=== PATIENT | male | born 1950 | race Caucasian/White ===

== ENCOUNTER 2019-08-19 10:41 | Emergency (ER) | payer MEDICARE, OTHER ==
[~2019-08-19] VITALS: Ht 177.8 cm; Wt 81.7 kg
[~2019-08-19 10:41] MED LIST: CEPH500 PO
[2019-08-19 11:28] LABS: BASOPHILS ABSOLUTE AUTO 0.08 K/mm3 (0.00-0.23); BASOPHILS PERCENT AUTO 1 % (0-2); EOSINOPHILS ABSOLUTE AUTO 0.16 K/mm3 (0.00-0.68); EOSINOPHILS PERCENT AUTO 2 % (0-6); Hemoglobin 16.5 g/dL (13.5-17.5); IMMATURE GRAN ABSOLUTE AUTO 0.07 K/mm3 (0.00-0.10); IMMATURE GRAN PERCENT AUTO 1 % (0-1); LYMPHOCYTES ABSOLUTE AUTO 2.17 K/mm3 (0.84-5.20); LYMPHOCYTES PERCENT AUTO 23 % (21-46); MONOCYTES ABSOLUTE AUTO 0.54 K/mm3 (0.16-1.47); MONOCYTES PERCENT AUTO 6 % (4-13); Mean Corpuscular HGB 32.8 pg (26.0-34.0); Mean Corpuscular HGB Conc 33.7 g/dL (31.5-36.5); Mean Corpuscular Volume 97 fL (80-100); Mean Platelet Volume 11.1 fL (9.1-12.4); NEUTROPHILS ABSOLUTE AUTO 6.42 K/mm3 (1.96-9.15); NEUTROPHILS PERCENT AUTO 68 % (41-73); Platelet Count 183 K/mm3 (150-400); RDW Coefficient Variation 12.8 % (11.7-14.2); RDW Standard Deviation 45.6 fL (35.1-46.3); Red Blood Cell Count 5.03 M/mm3 (4.30-5.90); White Blood Cell Count 9.44 K/mm3 (4.00-11.30)
[2019-08-19 13:52] LABS: Alanine Aminotransfer (ALT/SGP 28 U/L (12-78); Albumin/Globulin Ratio 1.1 (0.8-1.8); Anion Gap 7 mmol/L (6-16); Aspartate Aminotrans (AST/SGOT 15 U/L (12-37); Bilirubin, Total 0.4 mg/dL (0.1-1.0); Blood Urea Nitrogen 19 mg/dL (8-24); Bun/Creatinine Ratio 21.3 (12.0-20.0); CO2, Blood 23 mmol/L (21-32); Calcium, Blood 9.2 mg/dL (8.5-10.1); Chloride, Blood 108 mmol/L (98-108); Creatinine, Blood 0.89 mg/dL (0.60-1.20); Globulin, Blood 3.6 g/dL (2.2-4.0); Glomerular Filtration Rate >60 (60-); Glucose, Blood 86 mg/dL (70-99); Potassium, Blood 4.2 mmol/L (3.5-5.5); Sodium, Blood 138 mmol/L (136-145); Total Protein, Blood 7.6 g/dL (6.4-8.2)
[2019-08-19 13:56] LABS: Alk Phos 83 U/L (50-136); Troponin I <0.015 ng/mL (0.000-0.040)
[2019-08-19] MEDS ORDERED: LOW DOSE ASPIRI81 M1 PO (15:08)
== END 2019-08-19 15:28 | disposition home or self-care (01) ==
LOC: ER 10:41
PROVIDERS: Emergency Medicine
DX: R20.2 Paresthesia of skin (principal); R20.0 Anesthesia of skin; F17.210 Nicotine dependence, cigarettes, uncomplicated
CPT/HCPCS: 36415; 70450; 71046; 80053; 84484; 85025; 93005; 93010; 99285-25

== ENCOUNTER 2023-11-06 11:35 | Emergency (ER) | payer MEDICARE, OTHER ==
[~2023-11-06] VITALS: Ht 177.8 cm; Wt 81.7 kg
[~2023-11-06 11:35] MED LIST changes: +LOW DOSE ASPIRI81 M1 PO
[2023-11-06 12:10] LABS: BASOPHILS ABSOLUTE AUTO 0.07 K/mm3 (0.00-0.23); BASOPHILS PERCENT AUTO 1 % (0-2); EOSINOPHILS ABSOLUTE AUTO 0.17 K/mm3 (0.00-0.68); EOSINOPHILS PERCENT AUTO 2 % (0-6); Hematocrit 45.4 % (37.0-53.0); Hemoglobin 15.7 g/dL (13.5-17.5); IMMATURE GRAN ABSOLUTE AUTO 0.06 K/mm3 (0.00-0.10); IMMATURE GRAN PERCENT AUTO 1 % (0-1); LYMPHOCYTES ABSOLUTE AUTO 2.59 K/mm3 (0.84-5.20); LYMPHOCYTES PERCENT AUTO 26 % (21-46); MONOCYTES PERCENT AUTO 8 % (4-13); Mean Corpuscular HGB 34.2 pg (26.0-34.0); Mean Corpuscular HGB Conc 34.6 g/dL (31.5-36.5); Mean Corpuscular Volume 99 fL (80-100); NEUTROPHILS ABSOLUTE AUTO 6.21 K/mm3 (1.96-9.15); NEUTROPHILS PERCENT AUTO 63 % (41-73); Platelet Count 200 K/mm3 (150-400); RDW Coefficient Variation 12.4 % (11.7-14.2); RDW Standard Deviation 44.7 fL (35.1-46.3); Red Blood Cell Count 4.59 M/mm3 (4.30-5.90)
[2023-11-06 12:29] LABS: Albumin, Blood 3.9 g/dL (3.4-5.0); Albumin/Globulin Ratio 1.1 (0.8-1.8); Bilirubin, Total 0.3 mg/dL (0.1-1.0); Bun/Creatinine Ratio 13.8 (12.0-20.0); Calcium, Blood 9.5 mg/dL (8.5-10.1); Creatinine, Blood 1.09 mg/dL (0.60-1.20); Globulin, Blood 3.6 g/dL (2.2-4.0); Potassium, Blood 4.1 mmol/L (3.5-5.5); Total Protein, Blood 7.5 g/dL (6.4-8.2)
[2023-11-06] MEDS ORDERED: Clopidogrel Bisulfate 75 MG Tab PO ONE (12:55)
[2023-11-06] MEDS ORDERED: Aspirin 325 MG Tab PO ONE (12:55)
[2023-11-06 15:28] VITALS: BP 165/89
[2023-11-06] MEDS ORDERED: CLOP75 PO (15:39)
== END 2023-11-06 14:52 | disposition home or self-care (01) ==
LOC: ER 11:35
PROVIDERS: Physician Assistant
DX: I65.22 Occlusion and stenosis of left carotid artery (principal); F17.210 Nicotine dependence, cigarettes, uncomplicated; Z79.82 Long term (current) use of aspirin
CPT/HCPCS: 70450; 80053; 83718; 85025; 93880; 99284-25; A9270

== ENCOUNTER 2024-09-29 06:27 | Day surgery (SDC) | payer OTHER, MEDICARE ==
[2024-09-29] VITALS (12 sets, daily range): BP systolic 130–171; BP diastolic 63–94
[~2024-09-29] VITALS: Ht 177.8 cm; Wt 79.8 kg
[~2024-09-29 06:27] MED LIST changes: +ASPI325 PO; +CLOP75 PO; +SILD50TA PO
[2024-09-29] MEDS ORDERED: NS 1,000 ML IV ONE ×2 (06:50→07:51)
[2024-09-29] MEDS ORDERED: NS 500 ML IV ONE (06:50)
[2024-09-29] MEDS ORDERED: Heparin Sodium 1000 Units/ML 10ML MDV ONE (06:50)
[2024-09-29] MEDS ORDERED: ASPI81CH PO (06:57)
[2024-09-29] MEDS ORDERED: Midazolam HCl 1MG / ML 2ML Vial ONE (07:50)
[2024-09-29] MEDS ORDERED: FentaNYL Citrate 50 MCG/ML 2 ML Injection ONE (07:51)
[2024-09-29] MEDS ORDERED: Atropine Sulfate 0.1 MG/ML 10ML SYR ONE (08:14)
[2024-09-29] MEDS ORDERED: Phenylephrine HCl 100 MCG/ML-NS 10MLSYR (1MG/10ML) ONE (08:14)
[2024-09-29] MEDS ORDERED: Protamine Sulfate 50 MG Amp ONE (09:13)
--- NOTE | 2024-09-29 10:00 | NUR ---
ASSUMED CARE OF PT POST PROCEDURE. PT AWAKE AND CONVERSING APPROPRIATELY; DENIES PAIN POST PROCEDURE. MONITOR SR 60'S, B/P 140/72, SPO2 97 % RA. R GROIN NO SWELLING/HEMATOMA, TEGADERM DRSG INTACT; BLE PULSES ABSENT (UNCHANGED FROM PRE). L PT ATTEMPT NO SWELLING/HEMATOMA. PT'S AT BEDSIDE, ATTENTIVE.
--- NOTE | 2024-09-29 10:25 | NUR ---
DR CHANDLER DISCUSSED RESULTS OF PROCEDURE WITH PT AND .
--- NOTE | 2024-09-29 12:05 | NUR ---
PT'S HOB ELEVATED, R GROIN SITE UNCHANGED.
--- NOTE | 2024-09-29 13:05 | NUR ---
PT AMB TO BATHROOM, GAIT STEADY; R GROIN SITE UNCHANGED WITH ACTIVITY.
--- NOTE | 2024-09-29 13:35 | NUR ---
PT DRESSED SELF WITHOUT ISSUE, SITE UNCHANGED; IV REMOVED-CANNULA INTACT.
--- NOTE | 2024-09-29 13:46 | NUR ---
PT AND RECEIVED DISCHARGE INSTRUCTIONS, MED LIST AND AFTER CARE INSTRUCTIONS; VERBALIZED GOOD UNDERSTANDING. PT LEFT FACILITY VIA W/C, CONDITION STABLE.
== END 2024-09-29 13:46 | disposition home or self-care (01) ==
LOC: MHTC 06:27
DX: I73.9 Peripheral vascular disease, unspecified (principal); F17.210 Nicotine dependence, cigarettes, uncomplicated; Z79.82 Long term (current) use of aspirin; Z79.02 Long term (current) use of antithrombotics/antiplatelets; Z79.899 Other long term (current) drug therapy
CPT/HCPCS: 36247; 75625; 75716; 75774; 76937; 99152; 99153; C1769; C1887; C1894; J0461; J1644; J2250; J2371; J2720; J3010; J7030; J7050; Q9967